=== PATIENT | female | born 1960 | race Caucasian/White ===

== ENCOUNTER 2022-03-14 14:46 | Emergency (ER) | payer BC, OTHER ==
[2022-03-14] MEDS ORDERED: Sodium Chloride 0.9% 1,000 ML IV SCH (15:30)
[2022-03-14 15:47] LABS: HEMOGLOBIN A1C 5.7 %
[2022-03-14 16:29] LABS: CORONAVIRUS COVID-19 NAA POSITIVE (NEGATIVE)
[2022-03-14] MEDS ORDERED: Acetaminophen 325 MG Tab PO ONE (16:45)
== END 2022-03-14 17:46 | disposition home or self-care (01) ==
LOC: JD.ED 14:46
DX: U07.1 COVID-19 (principal); R00.0 Tachycardia, unspecified; E78.00 Pure hypercholesterolemia, unspecified; I10 Essential (primary) hypertension; Z79.899 Other long term (current) drug therapy
CPT/HCPCS: 0240U; 36415; 71045; 71045-26; 80053; 81001; 82009; 83036; 83735; 83880; 84443; 85025; 86140; 93005; 96360; 99285-25; A9270-GY; J7030